=== PATIENT | female | born 1990 | race Caucasian/White ===

== ENCOUNTER 2020-06-13 12:48 | Emergency (ER) | payer MEDICAID, SELFPAY ==
[2020-06-13 12:58] VITALS: BP 122/84; PULSE 67; RESP 18; TEMP 36.7; O2SAT 100
--- NOTE | 2020-06-13 13:00 | DI.CT_ITS ---
EXAM: CT CHEST PE CTA CLINICAL HISTORY: shortness of breath, dizzy. TECHNIQUE: Imaging Protocol: Axial CT angiography was performed with multi-slice acquisition and mu lti-planar and/or 3D reconstructions. CONTRAST MATERIAL: Intravenous: Omnipaque 350 Contrast volume:63 mL COMPARISON: No exams were available for comparison FINDINGS: Pulmonary Arteries: No evidence of filling defect to suggest pulmonary emboli. Tracheobronchial tree: Patent where visualized. Mediastinum and Caity: No dominant adenopathy or fluid collection. Pulmonary parenchyma: No consolidation or dominant measurable mass. No architectural distortion. Pleura: No effusion or pneumothorax. Heart: The heart is not dilated. No coronary artery calcifications are seen. No significant pericardi al effusion. Aorta: Thoracic aorta non-dilated. No evidence of dissection. Upper abdomen: Unremarkable. Bones: Normal. Soft tissues: Unremarkable. IMPRESSION: No evidence of pulmonary embolism, thoracic aortic dissection or aneurysm. Findings were discussed with the emergency department on the date of the examination. RADIATION DOSE DELIVERED: 297.53mGy.cm Total DLP DATA REPOSITORY: All CT scans at this facility are submitted to the National Radiology Data Registry (NRDR) Dose Index Registry (DIR) with the [employer] ([employer]). RADIATION OPTIMIZATION: All CT scans at this facility use at least one of these dose optimization te chniques: automated exposure control; mA and/or kV adjustment per patient size (includes targeted exa ms where dose is matched to clinical indication); or iterative reconstruction.
--- NOTE | 2020-06-13 13:00 | RT.EKG_ITS ---
APPROVED REPORT Exam: Resting ECG Patient Location: E HR:53 bpm ECG Measurements Heart Rate 53 AXIS TN 170 P 64 QRSd 90 QRS 51 QT 452 T 55 QTc 423 Conclusion Slow sinus arrhythmia...V-rate 42- 74, mean< 60
[2020-06-13 13:42] LABS: Abs Immature Grans 0.01 10^3/uL (0.0-0.06); Absolute Basophil Count 0.03 10^3/uL (0.0-0.2); Absolute Eosinophil Count 0.06 10^3/uL (0.0-0.7); Absolute Lymphocyte Count 2.29 10^3/uL (1.2-3.4); Absolute Monocyte Count 0.57 10^3/uL (0.1-0.8); Absolute Neutrophil Count 3.06 10^3/uL (1.2-6.7); Basophils % 0.5; HCT 40.5 % (36.0-46.0); HGB 13.6 g/dL (11.2-15.7); Immature Grans % 0.2; MCH 31.5 pg (27.0-33.0); MCHC 33.6 % (32.0-36.0); MCV 93.8 fL (80-95); MPV 9.5 fL (8.0-11.0); Monocytes % 9.5; Neutrophils % 50.8; Nucleated RBC 0 %; Platelet Count 304 10^3/uL (130-400); RBC 4.32 10^6/uL (3.93-5.22); RDW 12.2 % (11.7-14.6); RDW-SD 42.7 fL; WBC 6.02 10^3/uL (4.4-10.8)
--- NOTE | 2020-06-13 13:48 | ED.GENADUL_ITS ---
Discharge Plan Disposition Patient Disposition: HOME Condition: Stable Discharge Details Clinical Impression: Shortness of breath, Chest discomfort Primary Care Provider: None,None ED Provider: Sj Bolivar Home Meds and New Rx's Prescriptions: New albuterol sulfate 90 mcg/actuation HFA aerosol inhaler 2 puff inhalation Q4H PRN (Reason: shortness of breath or wheezing) Qty: 8.5 RF: 0 Continued Mirena 20 mcg/24 hours (5 yrs) 52 mg Intrauterine Device 1 device INTRAUTERINE ONCE RF: 0 lamotrigine [Lamictal] 200 mg Tablet 200 mg PO BID RF: 0 trazodone 50 mg Tablet 50 mg PO QHS RF: 0 levetiracetam [Keppra] 1,000 mg Tablet 1,500 mg PO Q12H RF: 0 Discontinued Primatene Mist 0.125 mg/actuation Hfa Aerosol Inhaler 1 puff INHALATION ONCE RF: 0 Discharge Instructions Instructions: Albuterol (By breathing), Dyspnea (ED) Additional Instructions: Please use albuterol inhaler 2 puffs every 4-6 hours as needed for shortness of breath or wheezing. Please contact a primary care physician to arrange follow-up. Return to the ER immediately for any worsening or new concerning symptoms. Medical Decision Making 1400??30-year-old female smoker here with sudden onset shortness of breath and pleuritic chest discomfort that started 2 days ago. Patient is saturating well in no respiratory distress. She has clear breath sounds bilaterally. Patient is afebrile and with no cough. Consider small pneumothorax versus pulmonary embolism versus other. Plan to obtain CT of the chest. Screening ECG was reviewed and interpreted by me: Please see report, sinus bradycardia noted. --CT of the chest was interpreted by radiology: FINDINGS: Pulmonary Arteries: No evidence of filling defect to suggest pulmonary emboli. Tracheobronchial tree: Patent where visualized. Mediastinum and Caity: No dominant adenopathy or fluid collection. Pulmonary parenchyma: No consolidation or dominant measurable mass. No architectural distortion. Pleura: No effusion or pneumothorax. Heart: The heart is not dilated. No coronary artery calcifications are seen. No significant pericardial effusion. Aorta: Thoracic aorta non-dilated. No evidence of dissection. Upper abdomen: Unremarkable. Bones: Normal. Soft tissues: Unremarkable. IMPRESSION: No evidence of pulmonary embolism, thoracic aortic dissection or aneurysm. Findings were discussed with the emergency department on the date of the examination. Labs reviewed and nondiagnostic. No leukocytosis. Normal troponin. Normal electrolytes. Unclear etiology for shortness of breath but may be reactive airway disease related to smoking. Patient was advised to stop smoking. I do not believe patient has Covid that she has no lung findings on CT, is not hypoxic here and has had no fever. She did have a Covid test performed this morning and results are pending. Patient was encouraged to follow-up with a primary care physician. She does need a primary care physician established. Patient was encouraged to return to the ER immediately for any worsening or new concerning symptoms. HPI General Mode of arrival: ambulatory . Date/Time Provider Initiated Documentation: 06/13/20 12:56 . Limitations to Documentation: no limitations . Information obtained by: patient . HPI Narrative: 30-year-old female presents with chief complaint of shortness of breath. Patient notes she was hiking 2 days ago and returned to her car and had sudden onset of shortness of breath. Patient notes shortness of breath has persisted and been fairly constant. Symptoms are moderate. She notes that when she takes a deep breath she feels a slight burning in her self sternal area. She has no associated abdominal pain. No leg pain or swelling. Patient is a smoker and does have IUD, no oral contraceptive. Related Data Home Medications Medication Instructions Recorded Confirmed Mirena 1 device INTRAUTERINE ONCE 06/13/20 06/13/20 albuterol sulfate 2 puff INHALATION Q4H PRN #8.5 g 06/13/20 lamotrigine [Lamictal] 200 mg PO BID 06/13/20 06/13/20 levetiracetam [Keppra] 1,500 mg PO Q12H 06/13/20 06/13/20 trazodone 50 mg PO QHS 06/13/20 06/13/20 Previous Rx's Medication Instructions Recorded albuterol sulfate 2 puff INHALATION Q4H PRN #8.5 g 06/13/20 Allergies Allergy/AdvReac Type Severity Reaction Status Date / Time No Known Allergies Allergy Unverified 06/13/20 12:55 General Stated Complaint: SOB RAGHAV: 3 Review of Systems All systems reviewed & are unremarkable except as noted in HPI and below Constitutional Constitutional: Denies fever(s) Cardiovascular Cardiovascular: Reports as per HPI Respiratory Respiratory: Reports as per HPI and Denies cough PFSH Medical History (Updated 06/13/20 @ 15:26 by Sj Bolivar MD) Seizure disorder Social History Smoking/Tobacco Use Status: Current every day Tobacco Type: cigarettes Alcohol Intake: current Alcohol Intake frequency: a few times a week Drug use: Daily Substance use type: marijuana Do you feel safe at home: Yes Do you feel safe in your relationship?: Yes Exam Const General: cooperative and no acute distress HENMT Mouth: moist mucous membranes Eyes Conjunctivae: conjunctivae normal Sclera: sclerae normal Neck Neck: trachea midline and supple Resp Auscultation: clear to auscultation bilaterally, no rales, no rhonchi and no wheezes Cardio Jugular venous pressure: no JVD Rate: regular rate and not tachycardic Rhythm: regular rhythm GI Palpation: soft, not firm, no guarding, no masses, not rigid and nontender Skin General skin exam: no rashes or lesions noted Neuro General: patient alert, patient awake, patient oriented x3 and tone normal Extrem General: calf tenderness on the right (Subtle) and no edema Psych Appearance: grossly normal Mental Status: mental status grossly normal Course Vital Signs Vital signs: Vital Signs Temperature 36.7 C 06/13/20 12:58 Pulse 67 06/13/20 12:58 Respiratory Rate 18 06/13/20 12:58 Blood Pressure 122/84 06/13/20 12:58 Pulse Oximetry 100 06/13/20 12:58 Temperature 36.7 C 06/13/20 12:58 Temperature Source Temporal Artery Scan 06/13/20 12:58 Pulse 67 06/13/20 12:58 Respiratory Rate 18 06/13/20 12:58 Respiratory Effort 06/13/20 13:02 Blood Pressure 122/84 06/13/20 12:58 Blood Pressure Position Sitting 06/13/20 12:58 Pulse Oximetry 100 06/13/20 12:58 Oxygen Delivery Method Room Air 06/13/20 12:58 Oxygen Flow Rate 0 06/13/20 12:58 Pain Level 4 06/13/20 12:58 Lab/Test Results Lab/Test Results: Laboratory Tests Range/Units 06/13/20 13:35 WBC (4.4-10.8) 10^3/uL 6.02 RBC (3.93-5.22) 10^6/uL 4.32 Hgb (11.2-15.7) g/dL 13.6 Hct (36.0-46.0) % 40.5 MCV (80-95) fL 93.8 MCH (27.0-33.0) pg 31.5 MCHC (32.0-36.0) % 33.6 RDW (11.7-14.6) % 12.2 Plt Count (130-400) 10^3/uL 304 MPV (8.0-11.0) fL 9.5 Immature Gran % 0.2 Neutrophils % 50.8 Lymphocytes % 38.0 Monocytes % 9.5 Eosinophils % 1.0 Basophils % 0.5 Nucleated RBC % % 0 Absolute Neutrophils (1.2-6.7) 10^3/uL 3.06 Absolute Lymphocytes (1.2-3.4) 10^3/uL 2.29 Absolute Monocytes (0.1-0.8) 10^3/uL 0.57 Absolute Eosinophils (0.0-0.7) 10^3/uL 0.06 Absolute Basophils (0.0-0.2) 10^3/uL 0.03
[2020-06-13 14:03] LABS: ALT 13 U/L (14-59); AST 10 U/L (15-37); Albumin 4.3 g/dL (3.4-5.0); Alkaline Phosphatase 45 U/L (46-116); Anion Gap 7.5 mmol/L (3-11); BUN 5 mg/dL (7-18); Bilirubin, Total 0.6 mg/dL (0.2-1.0); CO2 28.5 mmol/L (21.0-32.0); CREATININE 1.05 mg/dL (0.55-1.02); Calcium 9.2 mg/dL (8.5-10.1); Chloride 102 mmol/L (98-107); Glucose 98 mg/dL (74-106); Potassium 3.7 mmol/L (3.5-5.1); Sodium 138 mmol/L (136-145); Total Protein 7.7 g/dL (6.4-8.2)
[2020-06-13 14:06] LABS: Troponin I < 0.05 ng/mL (<0.06)
[2020-06-13] MEDS: Omnipaque 350 MG/ML 100 ML BTL IV (14:40)
--- NOTE | 2020-06-13 15:24 | NUR.NOTE ---
Nursing Note: Referral given to Care Management to establish care with a PCP. Yuliet Turner
[2020-06-13] MEDS: Inhaler, Assist Device 1 EACH MC (15:30)
[2020-06-13 15:31] VITALS: RESP 18
[2020-06-13 15:36] VITALS: BP 130/79; PULSE 70; RESP 18; O2SAT 100
== END 2020-06-13 15:32 | disposition home or self-care (01) ==
PROVIDERS: Emergency Provider Student in an Organized Health Care Education/Training Program
DX: R07.89 Other chest pain (principal); R06.02 Shortness of breath; F17.210 Nicotine dependence, cigarettes, uncomplicated
CPT/HCPCS: 36415; 71275; 80053; 81025; 93005; 99285; 84484; 85025; 93010; 99284; J3490